=== PATIENT | female | born 1970 | race Caucasian/White ===

== ENCOUNTER 2018-01-03 02:55 | Emergency (ER) | payer MEDICARE ==
--- NOTE | 2018-01-03 03:46 | ED.PDOC ---
History of Present Illness - General Chief Complaint: Problem Stated Complaint: Lt groin pain/Hx Kidney Stones Time Seen by Provider: 01/03/18 03:39 Source: patient, family Exam Limitations: no limitations Additional Information: C/O PAIN IN L INGUINAL AREA. SHARP, NON RADIATING. DOES NOT FEEL LIKE HER PREVIOUS KIDNEY STONES. - History of Present Illness Timing/Duration: 1 hour Severity: moderate Improving Factors: nothing Worsening Factors: nothing Associated Symptoms: other - PRESSURE DURING URINATION Allergies/Adverse Reactions: Allergies Amitriptyline [From Elavil] Allergy (Verified 01/03/18 03:29) Ketorolac Tromethamine [From Toradol] Allergy (Verified 01/03/18 03:28) Penicillin G Allergy (Verified 01/03/18 03:27) Promethazine [From Phenergan] Allergy (Verified 01/03/18 03:29) Home Medications: Ambulatory Orders Tramadol HCl [Ultram] 50 mg PO Q6HR PRN #15 tab 01/03/18 Review of Systems - Review of Systems Constitutional: Denies: chills, fever EENTM: States: no symptoms reported Respiratory: States: no symptoms reported Cardiology: States: no symptoms reported Gastrointestinal/Abdominal: States: abdominal pain, nausea. Denies: vomiting Genitourinary: Denies: dysuria, hematuria Musculoskeletal: States: no symptoms reported Skin: States: no symptoms reported Neurological: States: no symptoms reported Endocrine: States: no symptoms reported Hematologic/Lymphatic: States: no symptoms reported Past Medical History (General) - Patient Medical History Hx Seizures: No Hx Stroke: No Hx Dementia: No Hx Asthma: No Hx of COPD: No Hx Cardiac Disorders: No Hx Congestive Heart Failure: No Hx Pacemaker: No Hx Hypertension: Yes Hx Thyroid Disease: No Hx Diabetes: Yes Hx Gastroesophageal Reflux: No Hx Renal Disease: No Hx Cancer: No Hx of HIV: No Hx Hepatitis C: No Hx MRSA: No Surgical History: other - Vaccination History Hx Tetanus, Diphtheria Vaccination: Yes Hx Influenza Vaccination: Yes Hx Pneumococcal Vaccination: Yes - Social History Hx Tobacco Use: Yes Hx Alcohol Use: No Hx Substance Use: No Hx Substance Use Treatment: No Hx Depression: No - Triage Comment ED Triage Comment: Presents to ED--POV-- Amb---C/O Left groin area pain--denies flank pain--onset last night at 2100--states Hx of Kidney stones. Family Medical History - Family History Mother Family History: Unknown Physical Exam - Physical Exam General Appearance: Alert, Anxious, Obese - MORBIDLY Eye Exam: bilateral normal Ears, Nose, Throat: hearing grossly normal, normal ENT inspection Neck: non-tender, full range of motion, supple Respiratory: lungs clear, normal breath sounds Cardiovascular/Chest: regular rate, rhythm, no murmur Gastrointestinal/Abdominal: normal bowel sounds, soft, no organomegaly, other - TENDER L UPPER INGUINAL/LOWER PELVIC AREA, NO G/R Back Exam: normal inspection, no CVA tenderness Extremity: normal range of motion, no calf tenderness Neurologic: alert, normal mood/affect Skin Exam: normal color, warm/dry Lymphatic: no adenopathy Progress - Progress Progress: 01/03/18 06:28 SLEEPING, NO PAIN CURRENTLY Departure - Departure Clinical Impression: Diabetes 1.5, managed as type 2 Inguinal muscle strain Qualifiers: Encounter type: initial encounter Qualified Code(s): S39.013A - Strain of muscle, fascia and tendon of pelvis, initial encounter Hypertension Qualifiers: Hypertension type: essential hypertension Qualified Code(s): I10 - Essential ( primary) hypertension Time of Disposition: 06:30 Disposition: Discharge to Home or Self Care Condition: Good Departure Forms: ED Discharge - Pt. Copy, Patient Portal Self Enrollment Instructions: Muscle Strain Prescriptions: Tramadol HCl [Ultram] 50 mg PO Q6HR PRN #15 tab PRN Reason: Pain Home Medications: Ambulatory Orders Tramadol HCl [Ultram] 50 mg PO Q6HR PRN #15 tab 01/03/18
[2018-01-03] MEDS ORDERED: METOCLOPRAMIDE HCL INJ 10 MG/2 ML VIAL IV ONE (03:54)
[2018-01-03] MEDS ORDERED: fentaNYL CITRATE INJ 50 MCG/ML AMP IV ONE (03:54)
[2018-01-03 06:42] VITALS: BP 115/79; TEMP 96; O2SAT 92
== END 2018-01-03 06:43 | disposition home or self-care (01) ==
LOC: ER 02:55
DX: S39.013A Strain of muscle, fascia and tendon of pelvis, initial encounter (principal); I10 Essential (primary) hypertension; E11.9 Type 2 diabetes mellitus without complications; Z87.442 Personal history of urinary calculi
CPT/HCPCS: 36415; 80053; 81001; 81025; 85025; J2765; J3010